=== PATIENT | female | born 1935 | race Caucasian/White ===

== ENCOUNTER 2021-03-23 21:32 | Emergency (ER) | payer MEDICARE, SELFPAY ==
[2021-03-23 21:42] VITALS: BP 000/00; BP 179/82; PULSE 78; PULSE 82; RESP 16; O2SAT 100; O2SAT 97; BMI 23.8
[2021-03-23 21:59] VITALS: BP 142/47; PULSE 78; RESP 20; TEMP 36.8; O2SAT 100
--- NOTE | 2021-03-23 22:00 | ECG_ITS ---
Test Reason : DIZZINESS Blood Pressure : / mmHG Vent. Rate : 070 BPM Atrial Rate : 070 BPM P-R Int : 198 ms QRS Dur : 074 ms QT Int : 404 ms P-R-T Axes : 096 061 068 degrees QTc Int : 436 ms Normal sinus rhythm Normal ECG When compared with ECG of 23-NOV-2004 13:51, No significant change was found Referred By: Mere Pang Electronically Signed By:JAQUELINE CHRISTIE MD
--- NOTE | 2021-03-23 22:02 | ED.GENADULT ---
HPI - General Adult General Chief complaint: Nausea/Vomiting/Diarrhea Stated complaint: N/V Time Seen by Provider: 03/23/21 21:36 Source: patient and EMS Mode of arrival: EMS Limitations: no limitations History of Present Illness HPI narrative: Patient comes to the emergency room complaining of dizziness, nausea and vomiting. Patient states that she is known to have vertigo. Patient had her right ear flushed at her primary care physician's office this morning. Right after the ear flushing, she started complaining of severe dizziness, and nausea. Patient states this has happened before, but the vertigo has not lasted this long. Patient did not take any medication prior to arrival. Patient denies headache, no chest pain or shortness of breath, no visual changes. Related Data Previous Rx's Medication Instructions Recorded meclizine 25 mg PO TID PRN #14 tab 03/24/21 Allergies Allergy/AdvReac Type Severity Reaction Status Date / Time No Known Allergies Allergy Verified 03/23/21 21:56 Review of Systems Review of Systems: Constitutional : No Weight loss, No Fever, No Chills, No Night Sweats, No Fatigue, No Malaise ENT/Mouth : No Hearing loss, No Ear Pain, No Nasal Congestion, No Sinus Pain, No Hoarseness, No sore throat, No Rhinorrhea, No Swallowing Difficulty Eyes: No Eye Pain, No Swelling, No Redness, No Foreign Body, No Discharge, No Vision Changes Cardiovascular : No Chest Pain, No SOB, No Dyspnea on Exertion, No Orthopnea, No Edema, No Palpitations Respiratory : No Cough, No Sputum, No Wheezing, No Smoke Exposure, No Dyspnea Gastrointestinal : No Nausea, No Vomiting, No Diarrhea, No Constipation, No abdominal Pain, No Hematochezia, No Melena Genitourinary : no irregular bleeding, No Dysuria, No Urinary Frequency, No Hematuria, No Urinary Incontinence, No Urgency, No Flank Pain, No Urinary Flow Changes, No Hesitancy Musculoskeletal : No joint pain, No Myalgias, No Joint Swelling Skin : No Skin Lesions, No rash Neuro : No Weakness, No Numbness, No Paresthesias, No Loss of Consciousness, complaining of dizziness, worse with head movement, No Headache Psych : No Anxiety/Panic, No Depression, No SI/HI/AH/VH, No Social Issues, Heme/Lymph: No Bruising, No Bleeding,No Lymphadenopathy Endocrine : No Polyuria, No Polydipsia, No Temperature Intolerance [facility] Past Medical History Medical History (Updated 03/24/21 @ 02:13 by Mere Pang MD) BPPV (benign paroxysmal positional vertigo) Social History Social History Advance Directives: No Advance Directives Information Provided: Yes Physical Exam Vital Signs: Vital Signs: Last Vital Signs Temp 98.1 F 03/23/21 23:00 Pulse 67 03/23/21 23:00 Resp 19 03/23/21 23:00 BP 140/49 H 03/23/21 23:00 Pulse Ox 99 03/23/21 23:00 Body Mass Index 23.8 Appearance: Alert. Oriented X3. No acute distress. Eyes: Pupils equal, round and reactive to light. Bilateral nystagmus with head movement ENT: Pharynx normal. Bilateral ear canals clean, no erythema, no signs of infection Neck: Normal inspection. Neck supple. No lymph nodes noted. No crepitus CVS: Normal heart rate and rhythm. Pulses normal. Normal S1 and S2 Respiratory: No respiratory distress. Breath sounds normal. No Wheezing. No rales Abdomen: Soft and nontender. No rigidity. No distention. Skin: Skin warm and dry. Normal skin color. Normal skin turgor. Extremities: No lower extremity edema. No Lacerations. No Rash Neuro: Oriented X 3. No motor deficit. No sensory deficit. Moving all extermities. No slurred speech. Course Course Course Narrative: I discussed with the patient that her hemoglobin levels are low. Patient states that she has been aware for several years. Patient states she had a colonoscopy done in January of this year, patient was diagnosed with celiac disease. To her knowledge, patient has not had rectal bleeding recently. Patient states that the dizziness is much improved. Patient was able to get up and walk. Patient states she has ?a touch of dizziness when she moves but overall feels much better. Patient received 2 doses of meclizine and Valium. Patient states that she feels much better. I discussed with the patient if she would prefer to be admitted to the hospital on that she feels 100% better. Patient states that she feels well enough and prefers to go home. Patient states that her daughter will stay with her during the night. Patient is now able to turn her head without feeling dizzy. Patient's symptoms improved with medication, has residual symptoms, CVAs not suspected at this time Patient was ambulated by her nurse, patient has a steady gait, unassisted. Medical Decision Making Lab Data Result diagrams: 03/23/21 22:40 03/23/21 22:40 Labs: Lab Results 03/23/21 03/23/21 03/24/21 Range/Units 22:40 22:40 01:08 WBC 9.0 (4.8-10.8) X10*3/uL RBC 2.87 L (4.20-5.50) X10*6/uL Hgb 8.9 L (12.0-16.0) g/dl Hct 26.6 L (37-47) % MCV 92.7 (80-98) fL MCH 31.0 (27.0-33.0) pg MCHC 33.5 (31.0-35.0) g/dl RDW 19.0 H (11.0-16.0) % Plt Count 262 (160-400) X10*3/uL MPV 9.3 L (9.4-12.3) fL Immature Gran % (Auto) 0.4 (0.0-0.4) % Neut % (Auto) 84.2 H (45-73) % Lymph % (Auto) 10.1 L (20-40) % Posey % (Auto) 4.8 (2-11) % Eos % (Auto) 0.1 (0-4) % Baso % (Auto) 0.4 (0-2) % Lymph # (Auto) 0.9 L (1.2-4.9) X10*3/uL Posey # (Auto) 0.4 (0.1-1.2) X10*3/uL Eos # (Auto) 0.0 (0.0-0.4) X10*3/uL Baso # (Auto) 0.0 (0.0-0.2) X10*3/uL Abs Immat Gran (auto) 0.04 H (0.00-0.03) X10*3/uL Absolute Neuts (auto) 7.6 (2.0-8.3) X10*3/uL Absolute Nucleated RBC 0.000 (0.0-0.012) X10*3/uL Nucleated RBC % (auto) 0.0 (0.0-0.2) /100WBC Sodium 136 (135-145) mmol/L Potassium 4.2 (3.3-5.1) mmol/L Chloride 106 (96-108) mmol/L Carbon Dioxide 23 (22-29) mmol/L Anion Gap 11 L (12-20) BUN 28 H (9-16) mg/dL Creatinine 0.95 (0.5-1.4) mg/dL Estim Creat Clear Calc 38.9 Estimated GFR 56 Random Glucose 148 H (60-115) mg/dL Calcium 9.7 (8.4-10.2) mg/dL Total Bilirubin 0.8 (0.0-1.0) mg/dL Direct Bilirubin 0.2 (0.0-0.5) mg/dL AST 17 (5-31) U/L ALT 17 (0-31) U/L Alkaline Phosphatase 45 (39-117) U/L Total Protein 6.1 L (6.5-8.0) g/dL Albumin 3.8 (3.5-5.0) g/dL Stool Occult Blood NEGATIVE (NEGATIVE) ECG Data Attestation: I personally reviewed and interpreted this ECG as follows: (Sternal rhythm, heart rate 70, no ST segment depression elevation, nonspecific T-wave inversion in V1 and V2, QTC 436) Discharge Plan Discharge Clinical Impression: BPPV (benign paroxysmal positional vertigo) Qualifiers: Laterality: unspecified laterality Qualified Code(s): H81.10 - Benign paroxysmal vertigo, unspecified ear Patient Disposition: Home, Self-Care Instructions: Benign Paroxysmal Positional Vertigo (ED) Additional Instructions: Please follow-up with your primary care physician tomorrow. If you have any worsening or new symptoms, please return to the emergency room or call 911 Prescriptions: New meclizine 25 mg tablet 25 mg PO TID PRN (Reason: motion sickness) Qty: 14 RF: 0
[2021-03-23] MEDS: diazePAM 2 MG TABLET PO (22:26)
[2021-03-23] MEDS: Meclizine HCl 25 MG TABLET 50 MG PO (22:26)
[2021-03-23 22:46] LABS: Basophils Percent Auto 0.4 % (0-2); Eosinophils Percent Auto 0.1 % (0-4); Hematocrit 26.6 % (37-47); Hemoglobin 8.9 g/dl (12.0-16.0); Imm Gran Abs Auto 0.04 X10*3/uL (0.00-0.03); Imm Gran Pct Auto 0.4 % (0.0-0.4); Lymphocytes Absolute Auto 0.9 X10*3/uL (1.2-4.9); Lymphocytes Percent Auto 10.1 % (20-40); MANUAL DIFF FLAG NO; Mean Corpuscular HGB Conc 33.5 g/dl (31.0-35.0); Mean Corpuscular Volume 92.7 fL (80-98); Mean Platelet Volume 9.3 fL (9.4-12.3); Monocytes Absolute Auto 0.4 X10*3/uL (0.1-1.2); Monocytes Percent Auto 4.8 % (2-11); Neutrophils Absolute Auto 7.6 X10*3/uL (2.0-8.3); Neutrophils Percent Auto 84.2 % (45-73); Platelet Count 262 X10*3/uL (160-400); Red Blood Count 2.87 X10*6/uL (4.20-5.50)
[2021-03-23 23:00] VITALS: BP 140/49; PULSE 67; RESP 19; TEMP 36.7; O2SAT 99
[2021-03-24 01:06] LABS: Glucose Urine UA NEG (NEG); Leukocyte Esterase Urine NEG (NEG); Nitrite Urine NEG (NEG); Specific Gravity - Urine 1.015 (1.005-1.025); Urine Blood NEG (NEG); Urine Ketones NEG (NEG); Urine Protein NEG (NEG-TRACE)
[2021-03-24 01:09] LABS: Appearance Urine CLEAR; Color Urine YELLOW
[2021-03-24 01:12] LABS: OBS Int Ctl Valid YES; OBS1 NEGATIVE (NEGATIVE)
[2021-03-24 01:35] LABS: Alanine Aminotransferase 17 U/L (0-31); Albumin Level 3.8 g/dL (3.5-5.0); Alkaline Phosphatase 45 U/L (39-117); Anion Gap 11 (12-20); Aspartate Amino Transferase 17 U/L (5-31); Bilirubin Direct 0.2 mg/dL (0.0-0.5); Blood Urea Nitrogen 28 mg/dL (9-16); Calcium 9.7 mg/dL (8.4-10.2); Carbon Dioxide 23 mmol/L (22-29); Chloride 106 mmol/L (96-108); Creatinine Clr Calc Pharmacy 38.9; Estimated Glomerular Filt Rate 56; Glucose Random 148 mg/dL (60-115); Potassium 4.2 mmol/L (3.3-5.1); Sodium 136 mmol/L (135-145); Total Protein 6.1 g/dL (6.5-8.0)
[2021-03-24 01:40] LABS: Bilirubin Total 0.8 mg/dL (0.0-1.0)
[2021-03-24] MEDS: Meclizine HCl 25 MG TABLET 50 MG PO (01:51)
[2021-03-24] MEDS: diazePAM 2 MG TABLET PO (01:51)
[2021-03-24 02:16] LABS: UACC Culture Trigger NO
== END 2021-03-24 02:41 | disposition home or self-care (01) ==
PROVIDERS: Emergency Provider Emergency Medicine; PCP Hospitalist
DX: H81.10 Benign paroxysmal vertigo, unspecified ear (principal); R11.2 Nausea with vomiting, unspecified
CPT/HCPCS: 36415; 80048; 80076; 81003; 82272; 85025; 93005; 99283; 99284